=== PATIENT | female | born 1990 | race Caucasian/White ===

== ENCOUNTER → 2022-04-23 | Outpatient (CLI) | payer BC ==
[2022-04-23 18:41] LABS: Basophils # (A) 0.02 X 10*3/uL (0.00-0.10); Basophils % (A) 0.5 %; Eosinophils # (A) 0.15 X 10*3/uL (0.04-0.35); Eosinophils % (A) 3.6 %; HCT 41.1 % (37.2-46.3); HGB 13.4 g/dL (12.0-15.0); Immature Grans, Automated 0.2 %; Lymphocytes # (A) 1.29 X 10*3/uL (0.90-5.00); Lymphocytes % (A) 30.6 %; MCH 32.1 pg (27.0-32.0); MCHC 32.6 g/dL (32.0-37.0); MCV 98.6 fL (80.0-97.0); Mean Platelet Volume 9.9 fL (9.5-12.2); Monocytes # (A) 0.47 X 10*3/uL (0.20-1.00); Monocytes % (A) 11.2 %; NRBC Per 100 WBC 0 /100 WBCS (0.0-0.0); Neutrophils # (A) 2.27 X 10*3/uL (1.80-7.70); Neutrophils % (A) 53.9 %; Platelet Count 203 X 10*3/uL (140-440); RBC 4.17 X 10*6/uL (4.10-5.20); RDW 12.2 % (11.5-14.5); WBC 4.21 X 10*3/uL (4.50-10.00)
== END | disposition home or self-care (01) ==
LOC: LABPAT 11:41
PROVIDERS: ATTEND Obstetrics & Gynecology
DX: Z01.812 Encounter for preprocedural laboratory examination (principal); N93.8 Other specified abnormal uterine and vaginal bleeding
CPT/HCPCS: 85025

== ENCOUNTER 2022-04-30 07:48 | Day surgery (SDC) | payer BC ==
[~2022-04-30 07:48] MED LIST: DEXAMETHASONE SOD PHOSPHATE 4 MG/ML 1 ML VIAL IV ONE; HYDROmorphone 0.5 MG/0.5 ML SYRINGE IVP PRN; LACTATED RINGERS 1,000 ML IV SCH; LIDOCAINE 1% (10MG/ML) FOR IV START INTRADERMA PRN; MIDAZOLAM 2 MG/2 ML VIAL IV PRN; ONDANSETRON 4 MG/2 ML VIAL IVP ONE; Pre Op ABX Message 1 EACH MISC MISCELLANE ONE
[2022-04-30] MEDS ORDERED: SCOPOLAMINE 1 MG/72 HR PATCH TRANSDERM ONE (08:29)
[2022-04-30] MEDS ORDERED: LIDOCAINE 2% INJ 20 MG/ML (2 ML VIAL) ONE (09:18)
[2022-04-30] MEDS ORDERED: fentaNYL (PF) 50 MCG/ML 2 ML AMP ONE (09:18)
[2022-04-30] MEDS ORDERED: MIDAZOLAM 2 MG/2 ML VIAL ONE (09:18)
[2022-04-30] MEDS ORDERED: KETOROLAC 15 MG/ML 1 ML VIAL ONE (09:18)
[2022-04-30] MEDS ORDERED: PROPOFOL 10 MG/ML 20 ML VIAL IV ONE (09:18)
[2022-04-30] MEDS ORDERED: LIDOCAINE 1%-EPI 1:100,000 20 ML VIAL SUBMUCOSAL ONE (09:37)
--- NOTE | 2022-04-30 09:54 | P.OP ---
Date of Procedure: 04/30/22 Preoperative Diagnosis: Dysfunctional uterine bleeding Postoperative Diagnosis: Same Procedure(s) Performed: Diagnostic hysteroscopy and NovaSure endometrial ablation Anesthesia: MAC Surgeon: Jaqui Yepez Estimated Blood Loss (ml): 1 IV fluids (ml): 500 Urine output (ml): 50 Pathology: none sent Condition: stable Disposition: PACU Indications for Procedure: Dysfunctional uterine bleeding Operative Findings: Normal uterus with no gross intracavitary lesions Description of Procedure: After the patient was met in the preoperative holding area and all questions were answered, she was taken the operating room where anesthetic was administered without incident. She was in positioned, prepped and draped in the dorsal lithotomy position. Exam under anesthetic was undertaken. Bladder was drained for approximately 50 mL of clear urine. Weighted speculum was placed in the vagina and the cervix was grasped anteriorly with a single-tooth tenaculum. Paracervical block with lidocaine plus epinephrine was placed. Uterus was sounded to 9 cm. Cervix was then sequentially dilated with Hegar dilators to allow for passage of the diagnostic hysteroscope. Hysteroscope was introduced and the above findings were noted. The hysteroscope was removed and the NovaSure ablation device was introduced. There is a cavity length of 5 cm and a width of 3 cm. Cavity assessment test was passed. The device was enabled for treatment cycle of 90 seconds with a power of 83 W. Following cessation of the treatment cycle the device was removed and the hysteroscope was reintroduced. Complete desiccation of the endometrium was appreciated. All instruments were then removed from the uterus and the cervix was observed. No active bleeding was noted. Instruments removed from the vagina. The patient was awoken from anesthetic and transported recovery area in good condition. All counts reported to me as correct.
[2022-04-30 10:14] VITALS: TEMP 97.1
[2022-04-30 10:23] VITALS: RESP 16
[2022-04-30] MEDS ORDERED: ACETAMINOPHEN TAB 500 MG TAB ONE (11:14)
[2022-04-30] MEDS ORDERED: ACETAMINOPHEN TAB 500 MG TAB PO ONE (11:16)
[2022-04-30 12:04] VITALS: BP 120/78; PULSE 55
== END 2022-04-30 12:04 | disposition home or self-care (01) ==
LOC: OR 07:48
PROVIDERS: ATTEND Obstetrics & Gynecology
DX: N93.8 Other specified abnormal uterine and vaginal bleeding (principal); F41.9 Anxiety disorder, unspecified; F32.A Depression, unspecified; L70.9 Acne, unspecified; Z88.0 Allergy status to penicillin; Z98.890 Other specified postprocedural states; Z83.3 Family history of diabetes mellitus; Z82.49 Family history of ischemic heart disease and other diseases of the circulatory system
CPT/HCPCS: 58563; J2250; J1100; J2405; J3010; J1885; J2704; J2001